=== PATIENT | male | born 1960 | race American Indian/Alaskan Native ===

== ENCOUNTER 2021-01-16 05:54 | Day surgery (SDC) | payer OTHER ==
[~2021-01-16 05:54] MED LIST: ceFAZolin/STERILE WATER 2 GM/20 ML SYRINGE IV NR
[2021-01-16] MEDS ORDERED: LACTATED RINGERS 1,000 ML IV SCH (06:00)
[2021-01-16] MEDS ORDERED: MIDAZOLAM 2 MG/2 ML INJ IV NR (06:00)
[2021-01-16] MEDS ORDERED: BACTERIOSTATIC SODIUM CHLORIDE 0.9% 30 ML VIAL INFILTRATI ONE (06:18)
--- NOTE | 2021-01-16 07:06 | Anesthesia Consultation ---
Anesthesia Consult and Med Hx Date of service: 01/16/21 - Airway Anesthetic Teeth Evaluation: Good, Chipped (back bottom l tooth chipped) ROM Head & Neck: Adequate Mental/Hyoid Distance: Adequate Mallampati Class: Class II Intubation Access Assessment: Good - Pulmonary Exam CTA: Yes - Cardiac Exam Cardiac Exam: RRR - Pre-Operative Health Status ASA Pre-Surgery Classification: ASA2 Proposed Anesthetic Plan: General - Pulmonary Hx Smoking: No Hx Asthma: No COPD: No Hx Pneumonia: No Hx Sleep Apnea: Yes (DX SLEEP APNEA , NOT CPAP USE.) - Cardiovascular System Hx Hypertension: Yes Hx Heart Attack/AMI: No Hx Pacemaker: No Hx Internal Defibrillator: No - Central Nervous System Hx Seizures: No Hx Back Pain: No Hx Psychiatric Problems: Yes (PTSD) - Endocrine Hx End Stage Renal Disease: No Hx Cirrhosis: No Hx Liver Disease: No - Hematic Hx Anemia: No Hx Sickle Cell Disease: No - Other Systems Hx Alcohol Use: No Hx Substance Use: No Hx Cancer: No Hx Obesity: No
--- NOTE | 2021-01-16 07:07 | Anesthesia Day of Surgery ---
Anesthesia Day of Surgery - Day of Surgery Patient Examined: Yes Patient H&P Reviewed: Yes Patient is NPO: Yes
[2021-01-16] MEDS ORDERED: ONDANSETRON 4 MG/2 ML INJ IV PRN (07:18)
[2021-01-16] MEDS ORDERED: fentaNYL 100 MCG/2 ML INJ IV PRN (07:18)
[2021-01-16] MEDS ORDERED: HYDROmorphone 1 MG/1 ML INJ ONE (07:24)
[2021-01-16] MEDS ORDERED: LIDOCAINE MPF (2%) 20 MG/1 ML VIAL 5 ML ONE (07:24)
[2021-01-16] MEDS ORDERED: propofoL 200 MG/20 ML VIAL IV ONE (07:24)
[2021-01-16] MEDS ORDERED: ONDANSETRON 4 MG/2 ML INJ ONE (07:24)
[2021-01-16] MEDS ORDERED: dexAMETHasone 20 MG/5 ML VIAL ONE (07:24)
--- NOTE | 2021-01-16 09:08 | Short Stay Summary ---
Short Stay Documentation Date of service: 01/16/21 - History Past Medical History: No medical history - Allergies and Medications Current Medications: Allergies TREES,MILD,HAY FEVER [NKDA] Adverse Reaction (Unknown, Uncoded 01/09/21 12:56) Unknown Home Medications Medication Instructions Recorded Confirmed Last Taken Type Aleve 220 mg PO Q48HR 01/09/21 01/16/21 1 Week Ago History ~01/09/21 AtorvaSTATin [Lipitor] 20 mg PO QHS 01/09/21 01/09/21 01/15/21 23:00 History Cholecalciferol (Vitamin D3) 1 cap PO DAILY 01/09/21 01/09/21 01/15/21 23:00 History Hydrochlorothiazide 25 mg PO DAILY 01/09/21 01/09/21 01/15/21 23:00 History Lisinopril 40 mg PO DAILY 01/09/21 01/09/21 01/15/21 23:00 History amLODIPine [Norvasc] 10 mg PO DAILY 01/09/21 01/09/21 01/15/21 23:00 History Active Medications Cefazolin Sodium (Cefazolin/Sterile Water 2 Gm/20 Ml Syringe) 2 gm IV PREOP NR Stop: 01/16/21 23:59 Fentanyl (Fentanyl 100 Mcg/2 Ml Inj) 50 mcg IV Q5MIN PRN PRN Reason: Pain , Severe (7-10) Stop: 01/16/21 23:00 Lactated Ringer's (Lactated Ringers) 1,000 mls @ 100 mls/hr IV DIRECT AYAN Stop: 01/16/21 23:59 Last Admin: 01/16/21 06:45 Dose: 100 mls/hr Documented by: Midazolam HCl (Midazolam 2 Mg/2 Ml Inj) 2 mg IV PREOP NR Stop: 01/16/21 23:01 Last Admin: 01/16/21 07:05 Dose: 2 mg Documented by: Ondansetron HCl (Ondansetron 4 Mg/2 Ml Inj) 4 mg IV ONCE PRN PRN Reason: Nausea And Vomiting Stop: 01/16/21 18:00 - Brief post op/procedure progress note Date of procedure: 01/16/21 Pre-op diagnosis: rt hydrocele Post-op diagnosis: same Procedure: rt hydrocelectomy, scrotoplasty & justin Anesthesia: GETA Surgeon: ENRIQUE GREER Estimated blood loss: minimal Pathology: list (sac, scrotal skin) Specimen disposition: to lab Condition: stable - Hospital course Hospital course: bactrim & norco on chart - Disposition Condition at discharge: Stable Disposition: [id number]-01 TO HOME OR SELFCARE Short Stay Discharge Plan Follow up with: [facility] [Primary Care Provider] - 7 Days
[2021-01-16] MEDS ORDERED: LACTATED RINGERS 1,000 ML ONE (09:10)
--- NOTE | 2021-01-16 09:36 | Operative Report ---
PREOPERATIVE DIAGNOSIS: Right recurrent hydrocele (softball size). POSTOPERATIVE DIAGNOSIS: Right recurrent hydrocele (softball size). PROCEDURE: Right hydrocelectomy and scrotoplasty. SURGEON: Guido Choi MD ANESTHESIA: General. ESTIMATED BLOOD LOSS: Minimal. FLUIDS: Crystalloid. COMPLICATIONS: No complications. INDICATIONS: This patient is a 60-year-old gentleman who has been seen at the [facility]. They have aspirated his right hydrocele on multiple occasions with return of the fluid. His ultrasound at the [facility] confirmed hydrocele. He presents now for definitive therapy. Risks, benefits, and complications were explained. The patient agreed to proceed with surgical intervention. DESCRIPTION OF PROCEDURE: The patient was taken to the operative suite, placed in a supine position. After adequate general anesthesia, he was prepped and draped in a sterile fashion. The scrotum was marked to prepare a wedge resection of the scrotal skin, which was sent for routine pathologic evaluation. The hydrocele sac was entered. Serosanguineous fluid was extracted. Testicle appeared viable. No other abnormalities could be appreciated. A whipstitch using 2-0 Vicryl in a running fashion was used on the remnant hydrocele sac. The transverse incision was then closed in a sagittal direction to allow for better cosmetic appearance. Dart[place] layer was closed with 2-0 Vicryl in a running fashion. Chelle drain was brought in the center of the incision, half-inch Chelle. Skin was closed with 3-0 chromic in an interrupted fashion. Collodion was placed. Fluffs, scrotal support. The patient tolerated the procedure well and was extubated and taken to recovery room. He will go home on [place] and Bactrim and follow up in the office. JOB# [id number] [facility]
[2021-01-16 10:12] VITALS: BP 147/65
--- NOTE | 2021-01-16 13:06 | Post Anesthesia Evaluation ---
- Post Anesthesia Evaluation Patient Participated: Yes Airway Patent: Yes Stable Respiratory Function: Yes Nausea/Vomiting: No Temp > 96.8F: Yes Pain Manageable: Yes Adequeate Hydration: Yes Anesthesia Complications: No
== END 2021-01-16 10:40 | disposition home or self-care (01) ==
LOC: OR 05:54
PROVIDERS: ATTEND Urology
DX: N43.2 Other hydrocele (principal); E78.00 Pure hypercholesterolemia, unspecified; I10 Essential (primary) hypertension; G47.30 Sleep apnea, unspecified; K21.9 Gastro-esophageal reflux disease without esophagitis; Z88.8 Allergy status to other drugs, medicaments and biological substances; Z87.440 Personal history of urinary (tract) infections; Z79.899 Other long term (current) drug therapy; Z98.890 Other specified postprocedural states
CPT/HCPCS: 36415; 55040; 55175; 82947; 82962; 84132; 88302; J0690; J1100; J1170; J2250; J2405; J2704; J7120